=== PATIENT | female | born 1950 | race African-American/Black ===

== ENCOUNTER 2018-11-26 14:29 | Inpatient (IN) | payer OTHER ==
[~2018-11-26] VITALS: Ht 160 cm; Wt 91.1 kg
[~2018-11-26 14:29] MED LIST: ACID REFLUX MEDS; ASPI-1198 PO; BP MEDS
[2018-11-26 14:44] LABS: GLUCOSE,POINT OF CARE 138 MG/DL (70-110)
[2018-11-26] MEDS ORDERED: CLON1PAT14 TD (14:45)
[2018-11-26] MEDS ORDERED: LABETALOL HCL 5 MG/ML 20 ML VIAL IVP ONE ×2 (15:30→20:30)
[2018-11-26 15:58] LABS: BASOPHILS % (AUTO) 0.3 % (0.0-2.0); EOSINOPHILS % (AUTO) 1.3 % (1.0-6.0); HEMATOCRIT 39.8 % (36-46); HEMOGLOBIN 13.2 g/dL (12.0-16.0); LYMPHOCYTES # (AUTO) 2.4 K/uL (1.0-4.8); LYMPHOCYTES % (AUTO) 36.6 % (22.0-44.0); MEAN CORPUSCULAR HEMOGLOBIN 27.7 pg (26.0-34.0); MEAN CORPUSCULAR HGB CONC 33.2 G/dL (31.0-37.0); MEAN CORPUSCULAR VOLUME 84 fL (80-100); MONOCYTES # (AUTO) 0.5 K/uL (0.1-1.0); MONOCYTES % (AUTO) 7.5 % (2.0-9.0); NEUTROPHILS # (AUTO) 3.6 K/uL (1.8-7.7); NEUTROPHILS % (AUTO) 54.3 % (40.0-70.0); PLATELET COUNT (AUTO) 226 K/uL (150-450); RED BLOOD CELL COUNT(AUTO) 4.77 MIL/uL (4.00-5.20); RED CELL DISTRIBUTION WIDTH 14.6 % (11.5-14.5)
[2018-11-26 16:09] LABS: ANION GAP 12 mmol/L (8-16); CALCIUM, TOTAL 9.9 mg/dL (8.8-10.5); CARBON DIOXIDE 27 mmol/L (22-29); CHLORIDE 108 mmol/L (98-107); CREATININE 1.08 mg/dL (0.60-1.30); GLOMERULAR FILTR. RATE CALC > 60 mL/min (>60); GLUCOSE,RANDOM 126 mg/dL (70-110); POTASSIUM 3.5 mmol/L (3.5-5.1); SODIUM SERUM 147 mmol/L (136-145); UREA NITROGEN, BLOOD 10 mg/dL (7-18)
[2018-11-26 16:13] LABS: ALANINE AMINOTRANSFERASE 15 U/L (12-78); ALBUMIN 3.9 g/dL (3.4-5.0); ALKALINE PHOSPHATASE 121 U/L (46-116); ASPARTATE AMINOTRANSFERASE 9 U/L (15-37); LIPASE 43 U/L (73-393); PROTHROMBIN TIME 10.3 SEC (9.4-11.6); TOTAL PROTEIN, SERUM 7.3 g/dL (6.4-8.2)
[2018-11-26] MEDS ORDERED: SODIUM CHLORIDE 0.9% 100 ML ONE (16:30)
[2018-11-26] MEDS ORDERED: IOVERSOL 350 MG/ML 150 ML VIAL ONE (16:30)
[2018-11-26 19:36] LABS: APPEARANCE,URINE CLOUDY (CLEAR); BILIRUBIN,URINE NEGATIVE (NEGATIVE); GLUCOSE, URINE (UA) NEGATIVE (NEGATIVE); KETONES,URINE NEGATIVE (NEGATIVE); LEUKOCYTE ESTERASE ,URINE MODERATE (NEGATIVE); NITRATE,URINE POSITIVE (NEGATIVE); OCCULT BLOOD,URINE NEGATIVE (NEGATIVE); PROTEIN,URINE NEGATIVE (NEGATIVE); UROBILINOGEN,URINE 0.2 mg/dL (<=1.0)
[2018-11-26 19:47] LABS: BACTERIA,URINE Many /HPF (None Seen); RBC,URINE None Seen /HPF (0-2)
[2018-11-26 19:49] LABS: SQUAMOUS EPITHELIAL CELL,UR Few /LPF (None Seen); WBC,URINE 26-50 /HPF (0-5)
[2018-11-26] MEDS ORDERED: CloNIDine 0.3 MG/24 HOUR PATCH TD ONE (20:30)
[2018-11-26] MEDS ORDERED: DEXTROSE 50%-WATER 25 GM/50 ML SYRINGE IVP PRN (21:45)
[2018-11-26] MEDS ORDERED: ACETAMINOPHEN 325 MG TABLET PO PRN (21:45)
[2018-11-26] MEDS ORDERED: OxyCODONE HCL/ACETAMINOPHEN 5-325 MG TABLET PO PRN (21:45)
[2018-11-26] MEDS ORDERED: CefTRIAXone 1 GM/DEXTROSE 50 ML IV ONE (21:45)
[2018-11-26] MEDS ORDERED: MAGNESIUM HYDROXIDE SUSPENSION 30 ML UDCUP PO PRN (21:45)
[2018-11-26] MEDS: AmLODIPine BESYLATE 10 MG TABLET PO SCH (22:02)
[2018-11-26] MEDS: ASPIRIN 81 MG CHEWABLE TABLET PO SCH (22:02)
[2018-11-26] MEDS: ATORVASTATIN CALCIUM 20 MG TABLET PO SCH (22:02)
[2018-11-26] MEDS: CefTRIAXone 1 GM/DEXTROSE 50 ML IV SCH (22:29)
[2018-11-26] MEDS: HydrALAZINE HCL 20 MG/ML VIAL IVP PRN (23:37)
[2018-11-27 00:07] VITALS: BP 150/84
[2018-11-27] MEDS: INSULIN LISPRO 100 UNITS/ML SQ PRN ×5 (00:30→20:49)
[2018-11-27] MEDS: HEPARIN SODIUM,PORCINE 5,000 UNITS/ML VIAL SQ SCH ×4 (00:30→23:44)
[2018-11-27] MEDS ORDERED: PNEUMOCOCCAL VACCINE POLYVALENT 0.5 ML VIAL [PPSV23] IM ONE (03:15)
[2018-11-27 03:43] VITALS: BP 150/89
[2018-11-27 05:59] LABS: ANION GAP 17 mmol/L (8-16); CALCIUM, TOTAL 9.9 mg/dL (8.8-10.5); CARBON DIOXIDE 24 mmol/L (22-29); CHLORIDE 106 mmol/L (98-107); CREATININE 0.87 mg/dL (0.60-1.30); GLOMERULAR FILTR. RATE CALC > 60 mL/min (>60); GLUCOSE,RANDOM 175 mg/dL (70-110); POTASSIUM 3.2 mmol/L (3.5-5.1); SODIUM SERUM 147 mmol/L (136-145); UREA NITROGEN, BLOOD 8 mg/dL (7-18)
[2018-11-27 07:41] VITALS: BP 162/100
[2018-11-27] MEDS: FAMOTIDINE 20 MG TABLET PO SCH ×2 (08:08→20:46)
[2018-11-27] MEDS: DOCUSATE SODIUM 100 MG CAPSULE PO SCH ×2 (08:08→20:46)
[2018-11-27] MEDS ORDERED: DEXTROSE 5%-WATER 1,000 ML IV ONE (09:00)
[2018-11-27] MEDS ORDERED: POTASSIUM CHL 10 MEQ/WATER 50 ML IV PRN (09:00)
[2018-11-27] MEDS: POTASSIUM CHLORIDE 20 MEQ ER TABLET PO PRN ×2 (09:22→20:55)
[2018-11-27] MEDS: HydrALAZINE HCL 20 MG/ML VIAL IVP PRN ×2 (13:55→20:47)
[2018-11-27 13:56] VITALS: BP 184/96
[2018-11-27 16:51] VITALS: BP 153/67
[2018-11-27 20:30] VITALS: BP 198/90
[2018-11-27] MEDS: AmLODIPine BESYLATE 10 MG TABLET PO SCH (20:46)
[2018-11-27] MEDS: ATORVASTATIN CALCIUM 20 MG TABLET PO SCH (20:46)
[2018-11-27] MEDS: ASPIRIN 81 MG CHEWABLE TABLET PO SCH (20:46)
[2018-11-27] MEDS: CefTRIAXone 1 GM/DEXTROSE 50 ML IV SCH (21:05)
[2018-11-28 01:45] VITALS: BP 178/89
[2018-11-28 04:03] VITALS: BP 159/87
[2018-11-28 05:14] LABS: GLUCOMETER DEV NAME(LOC) 5S.2A; GLUCOSE,POINT OF CARE 186 MG/DL (70-110)
[2018-11-28] MEDS: INSULIN LISPRO 100 UNITS/ML SQ PRN ×2 (05:32→14:02)
[2018-11-28 05:36] LABS: GLUCOMETER DEV NAME(LOC) 5S.2A; GLUCOSE,POINT OF CARE 204 MG/DL (70-110)
[2018-11-28 07:45] VITALS: BP 155/87
[2018-11-28] MEDS: DOCUSATE SODIUM 100 MG CAPSULE PO SCH (09:54)
[2018-11-28] MEDS: HEPARIN SODIUM,PORCINE 5,000 UNITS/ML VIAL SQ SCH (09:56)
[2018-11-28] MEDS ORDERED: ATOR20TA86 PO (10:05)
[2018-11-28] MEDS ORDERED: AMLO10TA7 PO (10:05)
[2018-11-28] MEDS ORDERED: CIPR-278 PO (10:06)
[2018-11-28 11:15] VITALS: BP 157/81
[2018-11-28 13:59] LABS: GLUCOMETER DEV NAME(LOC) 5S.1; GLUCOSE,POINT OF CARE 180 MG/DL (70-110)
[2018-11-28 13:59] LABS: GLUCOMETER DEV NAME(LOC) 5S.1; GLUCOSE,POINT OF CARE 156 MG/DL (70-110)
[2018-11-28 13:59] LABS: GLUCOMETER DEV NAME(LOC) 5S.1; GLUCOSE,POINT OF CARE 215 MG/DL (70-110)
[2018-11-28 13:59] LABS: GLUCOMETER DEV NAME(LOC) 5S.1; GLUCOSE,POINT OF CARE 234 MG/DL (70-110)
[2018-11-28 14:00] LABS: GLUCOMETER DEV NAME(LOC) 5S.1; GLUCOSE,POINT OF CARE 281 MG/DL (70-110)
[2018-11-28 15:55] LABS: GLUCOMETER DEV NAME(LOC) 5S.1; GLUCOSE,POINT OF CARE 154 MG/DL (70-110)
== END 2018-11-28 15:45 | disposition home or self-care (01) | DRG 754 ==
LOC: EMS 14:30 → 5N 22:30
PROVIDERS: ADMIT Internal Medicine; ATTEND Internal Medicine
DX: C54.1 Malignant neoplasm of endometrium (principal); E43 Unspecified severe protein-calorie malnutrition; E87.0 Hyperosmolality and hypernatremia; I50.32 Chronic diastolic (congestive) heart failure; N39.0 Urinary tract infection, site not specified; N71.9 Inflammatory disease of uterus, unspecified; E11.9 Type 2 diabetes mellitus without complications; I11.0 Hypertensive heart disease with heart failure; I25.10 Atherosclerotic heart disease of native coronary artery without angina pectoris; E87.6 Hypokalemia; K57.90 Diverticulosis of intestine, part unspecified, without perforation or abscess without bleeding; K21.9 Gastro-esophageal reflux disease without esophagitis; Z82.49 Family history of ischemic heart disease and other diseases of the circulatory system; Z86.73 Personal history of transient ischemic attack (TIA), and cerebral infarction without residual deficits; Z83.3 Family history of diabetes mellitus; Z91.14 Patient's other noncompliance with medication regimen; Z28.21 Immunization not carried out because of patient refusal; Z68.35 Body mass index [BMI] 35.0-35.9, adult
CPT/HCPCS: 75635; 76856; 84132; 86850; 86900; 86901; 87086; 87210; 87491; 87591; 93005; 93306; G0378; J0360; J0696; J1644; J3490; J7050; J7060